=== PATIENT | male | born 1990 | race African-American/Black ===

== ENCOUNTER 2018-02-05 15:34 | Emergency (ER) | payer OTHER ==
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
[2018-02-05] MEDS ORDERED: IBUPROFEN 600 MG TAB PO STA (17:07)
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
[2018-02-05 17:26] VITALS: BP 130/80; PULSE 87; RESP 18; TEMP 99.3
== END 2018-02-05 17:25 | disposition home or self-care (01) ==
LOC: EC 15:34
DX: S92.911A Unspecified fracture of right toe(s), initial encounter for closed fracture (principal); J45.909 Unspecified asthma, uncomplicated; Z87.891 Personal history of nicotine dependence; W51.XXXA Accidental striking against or bumped into by another person, initial encounter; Y93.75 Activity, martial arts
CPT/HCPCS: 99283

== ENCOUNTER 2018-02-06 10:12 | Emergency (ER) | payer OTHER ==
[2018-02-06 10:20] VITALS: TEMP 97.8
--- NOTE | 2018-02-06 11:47 | ED ---
Fall HPI - General Chief Complaint: Fall Stated Complaint: Fall, back pain Time Seen by Provider: 02/06/18 10:29 Source: patient Mode of arrival: wheelchair Limitations: no limitations - History of Present Illness Initial Comments: This is a 27-year-old male presents emergency Department chief complaint of a fall. Patient states that he was standing on a ladder cleaning out gutters in which she fell on the ground. Patient states that he fell on his back in which she did strike his head. Patient states he did not lose consciousness. Patient went of a headache, neck pain and low back pain. Patient states is chronic back pain did have a laminectomy approximately one year ago. Patient denies any bowel, bladder incontinence or retention. Denies any lower shunted paresthesias or saddle anesthesias. Patient has no complaints of abdominal pain , chest pain or shortness of breath. Patient states he was dropped off to the emergency department by his friend. - Related Data Home Medications Medication Instructions Recorded Confirmed Albuterol Inhaler [Ventolin Hfa 1 - 2 puff INHALATION RT-Q6H PRN 02/05/18 Inhaler] Previous Rx's Medication Instructions Recorded Hydrocodone/Acetaminophen [Coats 1 tab PO Q6HR PRN #12 tab 02/06/18 5-325] Ibuprofen [Motrin] 600 mg PO Q8HR PRN #30 tab 02/06/18 Allergies Allergy/AdvReac Type Severity Reaction Status Date / Time No Known Allergies Allergy Verified 02/06/18 10:38 Review of Systems ROS Statement: Those systems with pertinent positive or pertinent negative responses have been documented in the HPI. ROS Other: All systems not noted in ROS Statement are negative. Past Medical History Past Medical History: Asthma History of Any Multi-Drug Resistant Organisms: None Reported Past Surgical History: Orthopedic Surgery Past Psychological History: Anxiety Smoking Status: Former smoker Past Alcohol Use History: Rare Past Drug Use History: Marijuana General Exam Limitations: no limitations General appearance: alert, in no apparent distress Head exam: Present: atraumatic, normocephalic, normal inspection Eye exam: Present: normal appearance, PERRL, EOMI. Absent: scleral icterus, conjunctival injection, periorbital swelling ENT exam: Present: normal exam, normal oropharynx, mucous membranes moist, TM's normal bilaterally, normal external ear exam Neck exam: Present: normal inspection, tenderness. Absent: meningismus, full ROM (Patient has a c-collar on), lymphadenopathy Respiratory exam: Present: normal lung sounds bilaterally. Absent: respiratory distress, wheezes, rales, rhonchi, stridor, chest wall tenderness Cardiovascular Exam: Present: regular rate, normal rhythm, normal heart sounds. Absent: systolic murmur, diastolic murmur, rubs, gallop, clicks GI/Abdominal exam: Present: soft, normal bowel sounds. Absent: distended, tenderness, guarding, rebound, rigid Extremities exam: Present: normal inspection, full ROM, normal capillary refill. Absent: tenderness, pedal edema, joint swelling, calf tenderness Back exam: Present: normal inspection, tenderness (Tenderness diffusely over the lumbar region patient's pain seems to be exaggerated), paraspinal tenderness , vertebral tenderness. Absent: full ROM, CVA tenderness (R), CVA tenderness (L ), muscle spasm Neurological exam: Present: alert, oriented X3, CN II-XII intact, reflexes normal, other (Finger to nose intact). Absent: motor sensory deficit Skin exam: Present: warm, dry, intact, normal color. Absent: rash Course Vital Signs 02/06/18 10:18 Temperature 97.8 F Pulse Rate 86 Respiratory 18 Rate Blood Pressure 125/96 O2 Sat by Pulse 99 Oximetry Medical Decision Making - Medical Decision Making 37-year-old male presented for fall off ladder. Patient CT of head, C-spine and lumbar spine. Patient is found to have fracture of bilateral transverse process of L1. Patient's case discussed with Dr. Jolly discussed the case with on-call orthopedics recommends follow-up in office and pain control. Patient is neurovascular intact there is no deficits no red flag symptoms. Disposition Clinical Impression: Fall, Head injury, Lumbar vertebral fracture Disposition: HOME SELF-CARE Condition: Stable Instructions: Thoracolumbar Fracture (ED) Additional Instructions: Please return to the Emergency Department if symptoms worsen or any other concerns. Prescriptions: Hydrocodone/Acetaminophen [Coats 5-325] 1 tab PO Q6HR PRN #12 tab PRN Reason: Pain Ibuprofen [Motrin] 600 mg PO Q8HR PRN #30 tab PRN Reason: Pain Is patient prescribed a controlled substance at d/c from ED?: Yes When asked, does pt state using other controlled substances?: No If prescribed controlled substance>3 days was MAPS reviewed?: Prescribed <3 Days If opioid is for acute pain is fill amount 7 days or less?: Yes If Rx opioid, was Start Talking consent form obtained?: Yes Referrals: Jamie Roa MD [Primary Care Provider] - 1-2 days Tabitha Marrufo DO [Doctor of Osteopathic Medicine] - 1-2 days Time of Disposition: 13:00
[2018-02-06] MEDS ORDERED: KETOROLAC 60 MG/2 ML VIAL IM STA (11:48)
--- NOTE | 2018-02-06 12:02 | CT ---
EXAMINATION TYPE: CT brain cspine wo con DATE OF EXAM: 02/06/2018 COMPARISON: Prior CT brain 11/09/2015 HISTORY: CT DLP: mGycm Automated exposure control for dose reduction was used. TECHNIQUE: CT scan of the head and cervical spine are performed without contrast. FINDINGS: There is no acute intracranial hemorrhage, mass effect, or midline shift identified. The ventricles and sulci are within normal limits in size. The globes are intact and the visualized sin uses are remarkable for inflammatory change within the ethmoid air cells, maxillary sinus.. Cervical spine is visualized in its entirety from C1 through upper thoracic levels and demonstrates s atisfactory alignment without evidence of acute fracture or dislocation. Posterior midline fusion ano jacklyn present at C7. Prevertebral soft tissue appears within normal limits. The C1-C2 articulation i s unremarkable. IMPRESSION: 1. There is no acute fracture or dislocation evident in the cervical spine. 2. No acute intracranial hemorrhage, mass effect, or midline shift is seen.
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
[2018-02-06 13:58] VITALS: BP 110/65; PULSE 72; RESP 16
== END 2018-02-06 14:01 | disposition home or self-care (01) ==
LOC: EC 10:12
DX: S32.019A Unspecified fracture of first lumbar vertebra, initial encounter for closed fracture (principal); S09.90XA Unspecified injury of head, initial encounter; M54.2 Cervicalgia; G89.29 Other chronic pain; J45.909 Unspecified asthma, uncomplicated; Z87.891 Personal history of nicotine dependence; Z98.890 Other specified postprocedural states; W11.XXXA Fall on and from ladder, initial encounter; Y93.89 Activity, other specified; Y92.009 Unspecified place in unspecified non-institutional (private) residence as the place of occurrence of the external cause
CPT/HCPCS: 72125; 72131; 70450; 99284; 96372; J1885

== ENCOUNTER 2018-05-15 23:42 | Emergency (ER) | payer OTHER ==
[2018-05-15 23:49] VITALS: RESP 20
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
--- NOTE | 2018-05-16 00:42 | CT ---
EXAMINATION TYPE: CT facial bones wo con DATE OF EXAM: 05/16/2018 COMPARISON: 10/15/2015 HISTORY: right jaw pain CT DLP: 558 mGycm Automated exposure control for dose reduction was used. TECHNIQUE: CT scan of the sinuses is performed without contrast, axial images are obtained, coronal r eformatted images are also reviewed. FINDINGS: There is nondisplaced hairline fracture of the angle of the right hemimandible. Fracture li ne extends through the bone of the right posterior molar. Temporomandibular joints are intact. There is mucosal thickening in the maxillary sinuses. Maxilla is intact. Zygomatic arches appear normal. Th ere is no evidence of a blowout fracture. There is mucosal thickening at the ostiomeatal complex bila terally. There is mucosal thickening in the ethmoid sinus and frontal sinus. There is mild sphenoid s inusitis. There are small soft tissue air bubbles posterior to the angle of the right hemimandible. IMPRESSION: Pansinusitis. Hairline fracture of the angle of the right hemimandible. No dislocation. Soft tissue air at the angl e of the right hemimandible consistent with a laceration.
[2018-05-16] MEDS ORDERED: MORPHINE SULFATE 4 MG/ML SYRINGE IV STA (00:58)
[2018-05-16] MEDS ORDERED: ceFAZolin IN SWFI 2 GM/20 ML SYRINGE IVP ONE (01:00)
[2018-05-16] MEDS ORDERED: MORPHINE SULFATE 10 MG/ML SYRINGE IM STA (02:10)
[2018-05-16] MEDS ORDERED: MORPHINE SULFATE 4 MG/ML SYRINGE IVP STA (02:16)
[2018-05-16 03:04] VITALS: BP 159/97; PULSE 95; TEMP 99.1
== END 2018-05-16 03:05 | disposition home or self-care (01) ==
LOC: EC 23:42
DX: S02.651B Fracture of angle of right mandible, initial encounter for open fracture (principal); J45.909 Unspecified asthma, uncomplicated; Z87.891 Personal history of nicotine dependence; Z53.8 Procedure and treatment not carried out for other reasons; Y04.0XXA Assault by unarmed brawl or fight, initial encounter; Y93.89 Activity, other specified
CPT/HCPCS: 70486; 99285; 96374; 96375; 96376; J2270; J0690

== ENCOUNTER 2018-05-20 17:23 | Emergency (ER) | payer OTHER ==
[2018-05-20 17:31] VITALS: BP 157/99; PULSE 103; RESP 18; TEMP 98.2
[2018-05-20] MEDS ORDERED: ACET/COD 300 MG/30 MG STARTER PACK 6 TAB BTL PO STA (17:48)
--- NOTE | 2018-05-20 17:54 | ED ---
General Adult HPI - General Chief complaint: ENT Stated complaint: pain, Hx broken jaw Time Seen by Provider: 05/20/18 17:42 Source: patient, RN notes reviewed Mode of arrival: ambulatory Limitations: no limitations - History of Present Illness Initial comments: Patient 27-year-old male presented to the emergency room today with a chief complaint of needing pain medication. Patient is medically was seen here recently in the emergency room diagnosed with a broken jaw. He does admit that he was trying follow-up with oral surgeon. He states that he had appointment this past Friday but then was told that they did not accept his insurance. Patient states that he is still having pain did not no rales to go see came back here to the emergency room. Patient denies any other complaints or symptoms. Patient denies any recent fever, chills, shortness of breath, chest pain, back pain, abdominal pain, nausea or vomiting, visual changes, or any other complaints. - Related Data Home Medications Medication Instructions Recorded Confirmed Albuterol Inhaler [Ventolin Hfa 1 - 2 puff INHALATION RT-Q6H PRN 02/05/18 Inhaler] Previous Rx's Medication Instructions Recorded Cephalexin [Keflex] 500 mg PO Q12HR #10 cap 05/16/18 Hydrocodone/Acetaminophen [[place] 1 tab PO Q6HR PRN 3 Days #12 tab 05/16/18 5-325] Ibuprofen [Motrin] 800 mg PO Q6HR #20 tab 05/20/18 Allergies Allergy/AdvReac Type Severity Reaction Status Date / Time No Known Allergies Allergy Verified 05/20/18 17:31 Review of Systems ROS Statement: Those systems with pertinent positive or pertinent negative responses have been documented in the HPI. ROS Other: All systems not noted in ROS Statement are negative. Past Medical History Past Medical History: Asthma History of Any Multi-Drug Resistant Organisms: None Reported Past Surgical History: Orthopedic Surgery Past Psychological History: Anxiety Smoking Status: Former smoker Past Alcohol Use History: Rare Past Drug Use History: Marijuana General Exam - General Exam Comments Initial Comments: General: The patient is awake and alert, in no distress, and does not appear acutely ill. Eye: Pupils are equal, round and reactive to light. Extra-ocular movements are intact. No nystagmus. There is normal conjunctiva bilaterally. No signs of icterus. Ears, nose, mouth and throat: There are moist mucous membranes and no oral lesions. Neck: The neck is supple, there is no tenderness or JVD. Musculoskeletal: Normal ROM, no tenderness. Sensation intact. Neurological: A&O x 3. CN II-XII intact, There are no obvious motor or sensory deficits. Coordination appears grossly intact. Speech is normal. Skin: Skin is warm and dry and no rashes or lesions are noted. Psychiatric: Cooperative, appropriate mood & affect, normal judgment. Limitations: no limitations Course Vital Signs 05/20/18 17:28 Temperature 98.2 F Pulse Rate 103 H Respiratory 18 Rate Blood Pressure 157/99 O2 Sat by Pulse 99 Oximetry Medical Decision Making - Medical Decision Making Recent CT was reviewed does show a hairline fracture of the mandible. Patient is advised to follow-up with oral surgeon. Given on-call oral surgery doctor Rober to follow-up with. Patient given starter pack of Tylenol with codeine. Disposition Clinical Impression: Mandible fracture Disposition: HOME SELF-CARE Condition: Good Instructions: Jaw Fracture in Adults (ED) Additional Instructions: Please follow-up with oral surgeon tomorrow as discussed. Please use medications as prescribed and return here to the emergency room for any other concerns. Prescriptions: Ibuprofen [Motrin] 800 mg PO Q6HR #20 tab Is patient prescribed a controlled substance at d/c from ED?: No Referrals: Jamie Roa MD [Primary Care Provider] - 1-2 days Porfirio Richter DDS [STAFF PHYSICIAN] - 1-2 days Time of Disposition: 17:53
== END 2018-05-20 18:21 | disposition home or self-care (01) ==
LOC: EC 17:23
DX: S02.609G Fracture of mandible, unspecified, subsequent encounter for fracture with delayed healing (principal); J45.909 Unspecified asthma, uncomplicated; Z87.891 Personal history of nicotine dependence
CPT/HCPCS: 99283